=== PATIENT | female | born 1980 | race Caucasian/White ===

== ENCOUNTER 2020-06-18 14:33 | Outpatient (REF) | payer SELFPAY ==
[2020-06-21 21:38] LABS: SARS-CoV-2 RNA Not Detected (NotDetected); SARS-CoV-2 RNA Source Nasal/Nares
== END 2020-06-18 14:53 ==
LOC: NCHCN 14:33
PROVIDERS: Visit Provider Nurse Practitioner Family
DX: Z20.828 Contact with and (suspected) exposure to other viral communicable diseases (principal)
CPT/HCPCS: U0003

== ENCOUNTER 2020-07-16 18:20 | Outpatient (REF) | payer SELFPAY ==
[2020-07-20 15:51] LABS: COVID-19 RT-PCR Result NEGATIVE (Negative)
== END 2020-07-16 18:40 ==
LOC: NCHCN 18:20
PROVIDERS: PCP Nurse Practitioner Family; Visit Provider Nurse Practitioner Family
DX: Z11.59 Encounter for screening for other viral diseases (principal)
CPT/HCPCS: U0003

== ENCOUNTER 2021-08-05 14:00 | Outpatient (REF) | payer SELFPAY ==
[2021-08-06 23:22] LABS: COVID-19 RT-PCR UVMMC Result Negative (Negative)
== END 2021-08-05 14:01 | disposition home or self-care (01) ==
LOC: NCHCN 14:00
PROVIDERS: PCP Nurse Practitioner Family; Visit Provider Family Medicine
DX: Z20.822 Contact with and (suspected) exposure to COVID-19 (principal); J06.9 Acute upper respiratory infection, unspecified
CPT/HCPCS: U0003

== ENCOUNTER 2022-08-05 09:21 | Outpatient (REF) | payer OTHER, SELFPAY ==
[2022-08-07 12:02] LABS: COVID-19 RT-PCR UVMMC Result Negative (Negative)
== END 2022-08-05 09:22 | disposition home or self-care (01) ==
LOC: NCHCN 09:21
PROVIDERS: PCP Nurse Practitioner Family; Visit Provider Nurse Practitioner Family
DX: Z20.822 Contact with and (suspected) exposure to COVID-19 (principal); J06.9 Acute upper respiratory infection, unspecified
CPT/HCPCS: U0003